=== PATIENT | female | born 1950 | race Caucasian/White ===

== ENCOUNTER 2017-07-27 13:01 | Inpatient (IN) | payer MEDICARE ==
[~2017-07-27] VITALS: Ht 167.6 cm; Wt 57.6 kg
[~2017-07-27 13:01] MED LIST: ADVAIR 500-501 EACH INH; ALDACTONE50 MG PO; ALPRAZOLAM ER1 MG PO; COMBIVENT INH; DEPAKOTE ER500 MG PO; EEMT DS 1.25-21 EACH PO; FLEXERIL; FLUCONAZOLE 10100 MG PO; LEVOTHYROXINE50 MCG PO; LORTAB PO; MODAFINIL200 MG; OXYGEN INH; PREDNISONE 10 M10 M1; PRIMIDONE 250M250 MG PO; SIMVASTATIN20 MG PO; SINGULAIR 10 MG10 M1; WELLBUTRIN SR150 MG PO
[2017-07-27 13:08] VITALS: BP 138/75
[2017-07-27] MEDS ORDERED: ALDACTONE25 MG PO (13:56)
[2017-07-27 14:14] LABS: HEMOGLOBIN 12.8 gm/dL (12.0-15.0); MCH 31.3 pg (26.0-34.0); MCHC 32.8 g/dL (28.0-37.0); MCV 95.6 fL (80.0-100.0); MPV 6.8 fl. (7.2-11.1); NUCLEATED RBCS 0 /100WBC; PLATELET COUNT* 257 thou/uL (150-400); RBC 4.08 mil/uL (4.20-5.00); RDW-CV 16.6 % (10.5-14.5)
[2017-07-27 14:17] LABS: ABSOLUTE EOSINOPHILS 0.2 thou/uL (0.0-0.7); ABSOLUTE LYMPHOCYTES 2.5 thou/uL (0.8-5.3); ABSOLUTE MONOCYTES 0.5 thou/uL (0.0-1.2); ABSOLUTE NEUTROPHILS 4.7 thou/uL (1.6-8.1); BASOPHILS 0.6 %; EOSINOPHILS 2.9 %; LYMPHOCYTES 31.6 %; MONOCYTES 6.4 %; POLYS 58.5 %
[2017-07-27 14:20] LABS: ANION GAP 9 mmol/L (7-16); BUN 12 mg/dL (7-18); CALCIUM 9.3 mg/dL (8.5-10.1); CHLORIDE 102 mmol/L (98-107); CO2 29 mmol/L (21-32); CREATININE 0.8 mg/dL (0.6-1.3); GLUCOSE 123 mg/dL (70-99); POTASSIUM 4.6 mmol/L (3.5-5.1); SODIUM 140 mmol/L (136-145)
[2017-07-27 14:26] LABS: ALBUMIN 3.5 g/dL (3.4-5.0); ALKALINE PHOSPHATASE 45 U/L (46-116); LIPASE 83 U/L (73-393); SGOT 14 U/L (15-37); SGPT 21 U/L (30-65); TOTAL BILIRUBIN 0.1 mg/dL (<0.1-1.0); TROPONIN-I LEVEL <0.06 ng/mL (<0.06)
[2017-07-27 16:42] VITALS: BP 109/66
[2017-07-27 17:40] VITALS: BP 127/63
[2017-07-27 17:56] LABS: URINE BILIRUBIN NEGATIVE (Negative); URINE BLOOD NEGATIVE (Negative); URINE CLARITY CLEAR; URINE COLOR YELLOW; URINE GLUCOSE-RANDOM NEGATIVE (Negative); URINE KETONES TRACE (Negative); URINE LEUKOCYTES-REFLEX NEGATIVE (Negative); URINE NITRITE-REFLEX NEGATIVE (Negative); URINE PROTEIN NEGATIVE (Negative); URINE SPECIFIC GRAVITY >= 1.030 (1.005-1.030); URINE UROBILINOGEN 0.2 E.U./dl (0.2-1.0)
[2017-07-27] MEDS ORDERED: METFORMIN HCL500 MG PO (18:19)
[2017-07-27 20:27] VITALS: BP 110/65
[2017-07-28] VITALS: BP 125/62
[2017-07-28 04:00] VITALS: BP 116/61
[2017-07-28 08:16] VITALS: BP 116/67
[2017-07-28 12:00] VITALS: BP 112/70
[2017-07-28 16:00] VITALS: BP 125/62
--- NOTE | 2017-07-28 16:29 | EKG ---
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 : 1950 Requested By: Daniel Joe Order Number: [id number] MD: Graham Easley Measurements Intervals [place] Rate: 93 P: 45 RI: 190 QRS: 269 QRSD: 159 T: -5 QT: 417 QTc: 519 Interpretive Statements Sinus rhythm Nonspecific IVCD with LAD ST depression V1-V3, suggest recording posterior leads Compared to ECG 07/07/2012 17:26:05 Intraventricular conduction delay now present ST (T wave) deviation now present First degree AV block no longer present Electronically Signed On 07-28-2017 16:29:26 CDT by Graham Easley [email or web address] <ELECTRONICALLY SIGNED> By: Graham Easley MD, FAC 07/28/17 1629 1350 1350 Graham Easley MD, FAC /EPI
--- NOTE | 2017-07-28 16:31 | EKG ---
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 : 1950 Requested By: Kianna Baker Order Number: [id number] MD: Graham Easley Measurements Intervals [place] Rate: 94 P: 45 [place]: 202 QRS: 267 QRSD: 151 T: 7 QT: 398 QTc: 498 Interpretive Statements Sinus rhythm Nonspecific IVCD with LAD Probable lateral infarct, old Compared to ECG 07/07/2012 17:26:05 Myocardial infarct finding now present First degree AV block no longer present Electronically Signed On 07-28-2017 16:31:06 CDT by Graham Easley [email or web address] <ELECTRONICALLY SIGNED> By: Graham Easley MD, [facility] 07/28/17 1631 1424 1424 Graham Easley MD, [facility] /EPI
[2017-07-28 19:45] VITALS: BP 135/68
[2017-07-29] VITALS: BP 100/82
[2017-07-29 04:00] VITALS: BP 152/57
[2017-07-29 08:00] VITALS: BP 154/86
[2017-07-29 11:30] VITALS: BP 132/73
[2017-07-29 15:58] VITALS: BP 132/73
[2017-07-29 16:43] VITALS: BP 116/92
== END 2017-07-29 18:01 | disposition home health service (06) | DRG 92 ==
LOC: M.ERS 13:01 → M.2W 15:46 → M.TBA-ER 15:46 → M.2W 16:52
PROVIDERS: Physician Assistant; ADMIT Internal Medicine
DX: G25.0 Essential tremor (principal); J96.11 Chronic respiratory failure with hypoxia; G40.909 Epilepsy, unspecified, not intractable, without status epilepticus; J44.9 Chronic obstructive pulmonary disease, unspecified; I34.1 Nonrheumatic mitral (valve) prolapse; F32.9 Major depressive disorder, single episode, unspecified; E11.9 Type 2 diabetes mellitus without complications; E03.9 Hypothyroidism, unspecified; E78.00 Pure hypercholesterolemia, unspecified; W18.00XA Striking against unspecified object with subsequent fall, initial encounter; Y93.89 Activity, other specified; Y92.89 Other specified places as the place of occurrence of the external cause; Y99.8 Other external cause status; Z90.49 Acquired absence of other specified parts of digestive tract; Z90.710 Acquired absence of both cervix and uterus; Z79.51 Long term (current) use of inhaled steroids; Z79.84 Long term (current) use of oral hypoglycemic drugs; Z79.899 Other long term (current) drug therapy; Z88.0 Allergy status to penicillin; Z88.8 Allergy status to other drugs, medicaments and biological substances; Z82.49 Family history of ischemic heart disease and other diseases of the circulatory system